=== PATIENT | female | born 1955 | race Caucasian/White ===

== ENCOUNTER → 2020-11-11 13:25 | Outpatient (CLI) | payer OTHER, SELFPAY ==
--- NOTE | 2020-11-11 13:31 | US_ITS ---
STUDY: RENAL ULTRASOUND - COMPLETE REASON FOR EXAM: Female, 65 years old. R FLANK PAIN TECHNIQUE: Ultrasound evaluation of the kidneys was performed with real-time and static peterson-scale imaging. COMPARISON: None. FINDINGS: RIGHT KIDNEY: Normal location of the right kidney, which is normal in size. The right kidney measures 10.6 cm x 4.5 cm x 4.5 cm. There is a normal cortex of the right kidney. The renal cortex measures 1.3 cm. There is no right renal mass or cyst. There are no right renal calculi. There is no right hydronephrosis. DISTAL RIGHT URETER: There is non-visualization of the distal right ureter. There is no demonstrated right ureterovesical junction calculus. There is a visualized right ureteral jet. LEFT KIDNEY: Normal location of the left kidney, which is normal in size. The left kidney measures 11 cm x 5.8 cm x 4.8 cm. There is a normal cortex of the left kidney. The renal cortex measures 1.3 cm. There is no left renal mass or cyst. There are no left renal calculi. There is no left hydronephrosis. DISTAL LEFT URETER: There is non-visualization of the distal left ureter. There is no demonstrated left ureterovesical junction calculus. There is a visualized left ureteral jet. BLADDER: The distended urinary bladder has a volume of 206 ml. There is a normal wall thickness of the distended urinary bladder. There is no demonstrated mass within the urinary bladder. There are no demonstrated bladder calculi. Incidental note is made of splenomegaly. The spleen measures 14 cm x 6.6 x 6.7 cm. A cyst measuring 1.4 cm x 1.4 cm is seen within. US/Kidney and Bladder IMPRESSION: Normal ultrasound of the kidneys and urinary bladder. Splenomegaly. 1.4 cm x 1.4 cm splenic cyst. Electronically Signed: Jose Mejía MD at 15:34 EDT , Service support ,
== END ==
PROVIDERS: PCP Family Medicine; Referring Provider Urology; Visit Provider Urology
DX: R10.9 Unspecified abdominal pain (principal)
CPT/HCPCS: 76770

== ENCOUNTER 2021-07-21 08:17 | Day surgery (SDC) | payer BC, SELFPAY ==
[2021-07-21] MEDS: Vancomycin IV 1,000 MG/200 ML BAG 200 MG IV (07:00)
[2021-07-21 09:07] VITALS: BP 114/56; PULSE 91; RESP 18; TEMP 37.1; O2SAT 100; BMI 31.6
[2021-07-21] MEDS: Lactated Ringers 1,000 ML 15 ML IV (09:15)
[2021-07-21 09:25] LABS: Bedside Glucose 182 mg/dL (70-110)
--- NOTE | 2021-07-21 10:02 | RAD_ITS ---
STUDY: X-RAY - PELVIS REASON FOR EXAM: Female, 66 years old. INTERSTIM REMOVAL AND REPLACEMENT OF LEAD TECHNIQUE: One view of the pelvis was obtained. COMPARISON: None. FINDINGS: Intraoperative imaging provided for InterStim placement. RAD/Pelvis 1 or 2 Views IMPRESSION: Intraoperative imaging provided for InterStim placement. Electronically Signed: Jose Mejía MD at 12:58 EST ,
--- NOTE | 2021-07-21 10:03 | PCM.OPRPT ---
Problems Associated Problem List Diagnoses (1) Urge incontinence: (2) Urinary frequency: Report of Operation Date of Procedure: 07/21/21 Pre-Operative Diagnosis: urinary frequency, urge incontinence Post-Operative Diagnosis: same Surgery/Procedure Performed:: Interstim removal and replacement Surgeon: Kaur Fraser Type of Anesthesia: MAC Description of Procedure: The patient is a 66-year-old female who has been successfully managed with an InterStim for her urinary frequency and urge incontinence for the last 6 years. Her battery has not and she presents for removal and replacement with a new system that is MRI compatible. Informed consent was obtained. The patient was taken the operating room and placed in a prone position on the operating room table. She was appropriately padded and secured to the table. Anesthesia monitored the head, neck, airway, IV access and vital signs throughout the case. Once anesthesia was appropriate ministered the patient was prepped and draped in usual sterile fashion. Using fluoroscopy, the lead was identified in the patient's right side. The area was infiltrated with lidocaine. An incision was made over the lead. Using hemostat and fluoroscopic visualization, the lead was identified and pulled into the operative field. All of the lead including all of the tines were removed without difficulty. Using heavy scissors, this was removed from the operative field. The area over the existing pocket was infiltrated with lidocaine. An incision was made and dissection with Bovie cautery and knife was performed until the IPG was identified and removed from the operative field. The pocket was observed for hemorrhage and cautery was used for hemostasis. At this time the needle was inserted through the right S3 foramen as identified on fluoroscopic visualization. There was good rocío and toe response identified. Using the guidewire followed by the dilator and then finally the lead, the S3 foramen was intubated and was then stimulated. It was obvious that the patient could feel stimulation on leads 0 however no rocío response or toe flexion was seen. There was some blood at the end of the obturator and the response of the rocío was attributed to this. Lead I had good toe flexion and leads II and III also had good toe flexion and rocío response visualized. The tines were then released and the lead was tunneled into the pocket site. It was dried and inserted into the IPG and screwed into position. The IPG was then placed into the pocket and tested for impedances and found to be appropriate. The pocket was closed in 2 layers using 3-0 interrupted Vicryl suturing followed by 4-0 subcuticular suturing and then skin glue. This closure process was also repeated on the incision over the lead site. Once the glue was dry, the patient was awakened and taken the recovery room in good condition. There were no complications during this procedure. Grafts/Implants Used: Interstim lead and battery Complications none Admit VTE Documentation VTE Present on Admission: No VTE Mechan Device Prophylaxis: None VTE Pharm Prophylaxis ordered?: No Reason prophylaxis not ordered:: Treatment Not Indicated
--- NOTE | 2021-07-21 10:04 | PCM.DC ---
Discharge Instructions Diet Discharge Diet: No restrictions Activity Discharge Activity: Return to Normal Activity, May Shower (tomorrow afternoon) and May Take a Tub Bath (in 2 weeks) May resume sexual activity in: 1-2 weeks Dressing / Incision Call your doctor if your incision/area has: Continuous Slow Oozing, Sudden Increased Bleeding, Increased Pain/ Swelling, Increased Redness, Foul Smelling Discharge and Swelling at the incision site Call your doctor if you observe: Fever of 101 or Higher, Inability to urinate and Inability to have a bowel movement Follow Up Care Please Follow Up With: Kaur Fraser MD When: call for appt to be seen in 4 weeks in the office Test Results: Test results from this visit will be discussed in further detail at your follow-up appointment, if applicable. Discharge Plan Admission Attending Provider: Kaur Fraser Primary Care Provider: Jeff Gilmore Discharge Orders/Prescriptions Prescriptions: New oxycodone-acetaminophen [oxycodone-acetaminophen] 1 TABLET tablet 2 tab PO Q8H PRN PRN (Reason: Pain) 7 Days Qty: 20 RF: 0 cephalexin [cephalexin] 500 MG capsule 500 mg PO Q12 3 Days Qty: 6 RF: 0 Continued multivitamin Tablet 1 tab PO DAILY RF: 0 calcium 600 mg Capsule 600 mg PO QHS RF: 0 metformin 500 mg tablet 1,000 mg PO BID RF: 0 atorvastatin 80 mg tablet 80 mg PO DAILY RF: 0 venlafaxine 75 mg capsule,extended release 24hr 150 mg PO BREAKFAST RF: 0 venlafaxine 75 mg capsule,extended release 24hr 75 mg PO QHS RF: 0 famotidine 40 mg tablet 40 mg PO DAILY RF: 0 black cohosh 540 mg capsule 540 mg PO BID RF: 0 aspirin 81 mg tablet,delayed release (DR/EC) 81 mg PO DAILY RF: 0 levothyroxine 25 mcg tablet 25 mcg PO DAILY RF: 0 biotin 10,000 mcg Capsule 10,000 mcg PO DAILY RF: 0 losartan 25 mg tablet 25 mg PO DAILY RF: 0 pramipexole 0.125 mg tablet 0.375 mg PO QHS RF: 0 verapamil 240 mg tablet extended release 240 mg PO DAILY RF: 0 glipizide 5 mg tablet 10 mg PO BID RF: 0 nortriptyline 50 mg capsule 50 mg PO QHS RF: 0 ezetimibe 10 mg tablet 10 mg PO DAILY RF: 0 solifenacin 5 mg tablet 5 mg PO DAILY RF: 0 Januvia 100 mg tablet 100 mg PO DAILY RF: 0 cholecalciferol (vitamin D3) 100 mcg (4,000 unit) Capsule 100 mcg PO DAILY RF: 0 Jardiance 25 mg tablet 25 mg PO DAILY RF: 0 Trulicity 1.5 mg/0.5 mL pen injector 1.5 mg SUBCUT FR RF: 0 Referrals / Follow Up: Jeff Gilmore MD [Primary Care Provider] - Disposition Disposition (needs filled in before D/C Order can be placed): Home, Self Care
[2021-07-21] MEDS: Lidocaine 1% (20 ml mdv) 20 ML Vial (10:15)
[2021-07-21 11:00] VITALS: BP 114/56; BP 115/89; PULSE 104; RESP 16; TEMP 37.5; O2SAT 95
[2021-07-21 11:05] VITALS: BP 114/56; BP 131/72; PULSE 100; RESP 16; O2SAT 98
[2021-07-21 11:10] VITALS: BP 114/56; BP 119/68; PULSE 99; RESP 16; O2SAT 95
[2021-07-21 11:15] VITALS: BP 114/56; BP 128/84; PULSE 100; RESP 16; TEMP 37.1; O2SAT 99
[2021-07-21 12:01] VITALS: BP 114/56; BP 134/68; PULSE 100; RESP 16; TEMP 36.7; O2SAT 100
== END 2021-07-21 23:59 | disposition home or self-care (01) ==
LOC: SDC 08:21 → AC 08:23
PROVIDERS: PCP Family Medicine; Referring Provider Urology; Visit Provider Urology
PROC: (CPT 64585; principal; 2021-07-21 09:45)
DX: Z45.42 Encounter for adjustment and management of neurostimulator (principal); E11.9 Type 2 diabetes mellitus without complications; R35.0 Frequency of micturition; N39.41 Urge incontinence; I10 Essential (primary) hypertension; I25.2 Old myocardial infarction; Z79.82 Long term (current) use of aspirin; Z79.899 Other long term (current) drug therapy; Z79.84 Long term (current) use of oral hypoglycemic drugs; M19.90 Unspecified osteoarthritis, unspecified site; E78.00 Pure hypercholesterolemia, unspecified; G25.81 Restless legs syndrome; G47.30 Sleep apnea, unspecified; E07.9 Disorder of thyroid, unspecified
CPT/HCPCS: 64585; 64595; 00400; 72170; 76000; 82962; 87426; J7120; C1767

== ENCOUNTER 2022-07-23 07:04 | Day surgery (SDC) | payer BC, SELFPAY ==
[2022-07-23] VITALS (8 sets, daily range): BP systolic 116–135; BP diastolic 63–83; PULSE 85–99; RESP 16; TEMP 36.6–36.9; O2SAT 85–100; BMI 29.7
[2022-07-23] MEDS: Lactated Ringers 1,000 ML 15 ML IV (07:20)
--- NOTE | 2022-07-23 07:50 | RAD_ITS ---
CLINICAL HISTORY: REMOVAL INTERSTIM PLACE AXONICS 1 2 Date: 07/23/2022 8:52 AM Date of : 1955 Images assigned to this order were provided in conjunction with a surgical procedure performed in the operating room/procedural suite. Please see operative report for details. Fluoroscopic images: 4 Fluoroscopic time: 100 seconds Cumulative dose: NA, mGym2; 48.94; mGy Imaging documents a right-sided pelvic stimulator which appears to been removed and replaced with a left-sided pelvic stimulator. Refer to procedural note for complete description. Impressions: 1. Fluoroscopic guidance for surgical planning and confirmation. See procedure note for details of the procedure. Electronically Signed: Fazal Petersen MD at 19:04 EST , RAD/Pelvis 1 or 2 Views IMPRESSION: undefined
[2022-07-23 07:55] LABS: Bedside Glucose 191 mg/dL (74-106)
[2022-07-23] MEDS: Lidocaine 2% /Epi 1:100 (20ml) 20 ML VIAL (08:49)
--- NOTE | 2022-07-23 10:31 | DCINST_ITS ---
Discharge Instructions Diet Discharge Diet: No restrictions Activity Discharge Activity: May Not Shower (For 2 days) May resume sexual activity in: 2 weeks Dressing / Incision Call your doctor if your incision/area has: Continuous Slow Oozing, Sudden Increased Bleeding, Increased Pain/ Swelling, Increased Redness, Foul Smelling Discharge and Swelling at the incision site Call your doctor if you observe: Fever of 101 or Higher, Inability to urinate and Inability to have a bowel movement Remove Dressing in: 2 days (Remove the outer dressing in 2 days. Leave the Steri-Strips on until they fall off. Okay to shower with Steri-Strips on) Follow Up Care Please Follow Up With: Kaur Fraser MD When: 2 weeks, call office for appointment Test Results: Test results from this visit will be discussed in further detail at your follow- up appointment, if applicable. Discharge Plan Admission Attending Provider: Kaur Fraser Primary Care Provider: Jeff Gilmore Discharge Orders/Prescriptions Prescriptions: New oxycodone-acetaminophen [oxycodone-acetaminophen] 5-325 mg tablet 2 tab PO Q8H PRN PRN (Reason: Pain) 3 Days Qty: 18 0RF cephalexin [cephalexin] 500 mg capsule 500 mg PO 3XD 3 Days Qty: 9 0RF Continued multivitamin Tablet 1 tab PO DAILY calcium 600 mg Capsule 600 mg PO QHS metformin 500 mg tablet 1,000 mg PO BID Label Comments: Take 1 Tab Oral twice a day i po bid atorvastatin 80 mg tablet 80 mg PO QHS Label Comments: oral venlafaxine 75 mg capsule,extended release 24hr 150 mg PO BREAKFAST Label Comments: TAKE 2 CAPSULES BY MOUTH IN THE MORNING AND 1 CAP AT BEDTIME DAILY venlafaxine 75 mg capsule,extended release 24hr 75 mg PO QHS Label Comments: TAKE 2 CAPSULES BY MOUTH IN THE MORNING AND 1 CAP AT BEDTIME DAILY famotidine 40 mg tablet 40 mg PO DAILY Label Comments: TAKE 1 TABLET BY MOUTH EVERY DAY DIRECTED black cohosh 540 mg capsule 540 mg PO BID Label Comments: oral aspirin 81 mg tablet,delayed release (DR/EC) 81 mg PO DAILY Label Comments: oral levothyroxine 25 mcg tablet 25 mcg PO DAILY Label Comments: TAKE 1 TABLET BY MOUTH EVERY DAY biotin 10,000 mcg Capsule 10,000 mcg PO DAILY losartan 25 mg tablet 25 mg PO DAILY Label Comments: oral pramipexole 0.125 mg tablet 0.375 mg PO QHS Label Comments: oral ezetimibe 10 mg tablet 10 mg PO DAILY Label Comments: oral solifenacin 5 mg tablet 5 mg PO DAILY Label Comments: oral cholecalciferol (vitamin D3) 100 mcg (4,000 unit) Capsule 100 mcg PO DAILY Jardiance 25 mg tablet 25 mg PO DAILY Label Comments: oral Trulicity 1.5 mg/0.5 mL pen injector 1.5 mg SUBCUT FR Label Comments: subQ glimepiride 4 mg Tablet 4 mg PO BID insulin glargine [Basaglar KwikPen U-100 Insulin] 100 unit/mL (3 mL) Insulin Pen 25 unit SUBCUT QPM Praluent Pen 75 mg/mL Pen Injector 75 mg SUBCUT Q14D Referrals / Follow Up: Jeff Gilmore MD [Primary Care Provider] - Disposition Disposition (needs filled in before D/C Order can be placed): Home, Self Care
--- NOTE | 2022-07-23 13:51 | PCM.OPRPT ---
Report of Operation Date of Procedure: 07/23/22 Pre-Operative Diagnosis: Urinary urge incontinence, urinary frequency Post-Operative Diagnosis: Same Surgery/Procedure Performed:: Removal of InterStim lead and battery, placement of Axonics lead and battery (stage I and II) Surgeon: Kaur Fraser Type of Anesthesia: MAC Specimen's removed: InterStim lead and battery Description of Procedure: The patient is a 67-year-old female who had a successful InterStim and when the battery was replaced it no longer worked appropriately. She now presents for removal of her InterStim with insertion of an Axonics stage I and II, informed consent was obtained. The patient was taken to the operating room and placed in a prone position on the operating room table. She was appropriately secured and padded. Anesthesia monitored the head, neck, airway, IV access and vital signs throughout the case. Once anesthesia was appropriately administered, she was prepped and draped in usual sterile fashion. At this time the area overlying her battery was infiltrated with lidocaine as was the area overlying her lead insertion site. Fluoroscopy was used to outline her sacral anatomy. The incision over the battery was opened and the battery was removed. A hemostat was placed on the lead for traction. An incision was made over the lead insertion site. The lead was so scarred down to the sacrum that it took approximately 15 minutes to identify the location of the lead at the insertion site. Once the lead was isolated, it was removed in its entirety. At this point, using both AP and lateral views with fluoroscopy, the patient's sacral foramens were tested for stimulation response and both S3 and S4 positions. The patient's sacrum was obviously very scarred, and there was difficulty advancing the dilator. After multiple trials, the best stimulation was achieved on the patient's left S3 foramen. The lead achieved stimulation response with rocío and no toe flexion with leads 01 and 2 and no response on lead III. This was the best response of all of the trialed access points. The lead was left in situ and the sheath was removed with the tines deployed. The lead was then tunneled into the existing pocket site which had been previously irrigated with sterile water. The lead was dried and inserted into the Axonics battery and secured using the torque wrench. The lead was then placed into the pocket site which was closed using 3-0 Vicryl followed by 4-0 subcuticular Monocryl closure. The old lead insertion site was irrigated and then closed in 2 layers with 3-0 and 4-0 sutures. The new lead insertion site was closed with 4-0 interrupted sutures. Steri-Strips and OpSite with gauze was then applied. Skin glue was placed on the battery pocket site. The patient was then awakened and taken to the recovery room in good condition. This was a very difficult InterStim removal and Axonics placement. Grafts/Implants Used: Axonics lead and battery Complications None Admit VTE Documentation VTE Present on Admission: No VTE Mechan Device Prophylaxis: None VTE Pharm Prophylaxis ordered?: No Reason prophylaxis not ordered:: Treatment Not Indicated
== END 2022-07-23 11:45 | disposition home or self-care (01) ==
LOC: SDC 07:07 → AC 07:07
PROVIDERS: PCP Family Medicine; Referring Provider Urology; Visit Provider Urology
PROC: (CPT 64590; principal; 2022-07-23 08:40)
DX: Z45.42 Encounter for adjustment and management of neurostimulator (principal); N39.41 Urge incontinence; R35.0 Frequency of micturition; E11.9 Type 2 diabetes mellitus without complications; R35.1 Nocturia; I10 Essential (primary) hypertension; E78.00 Pure hypercholesterolemia, unspecified; I25.2 Old myocardial infarction; Z79.82 Long term (current) use of aspirin; Z79.84 Long term (current) use of oral hypoglycemic drugs; Z79.890 Hormone replacement therapy; Z79.899 Other long term (current) drug therapy; E07.9 Disorder of thyroid, unspecified
CPT/HCPCS: 64590; 64561; 00300; 72170; 76000; 82962; J7040; J7120; J2405

== ENCOUNTER 2024-02-24 08:13 | Day surgery (SDC) | payer OTHER, SELFPAY ==
[2024-02-24] VITALS (7 sets, daily range): BP systolic 108–141; BP diastolic 53–67; PULSE 82–96; RESP 16–18; TEMP 36.7–36.9; O2SAT 94–98; BMI 33.2
[2024-02-24] MEDS: Lactated Ringers 1,000 ML 15 ML IV (08:48)
[2024-02-24 09:31] LABS: Bedside Glucose 155 mg/dL (74-106)
[2024-02-24] MEDS: Cefazolin 2 GM in 0.9% Normal Saline (100mL Bag) 100 ML IV (09:38)
[2024-02-24] MEDS: Lidocaine Jelly 2% 20 ML Syringe (URO-JET) 1 APPLIC (09:43)
--- NOTE | 2024-02-24 09:57 | PCM.POST.ANE ---
Anesthesia: Postop Eval I Current Vital Signs Temperature: 98.1 F Pulse Rate: 96 Blood Pressure: 126/57 Respiratory Rate: 16 Pulse Ox: 95 Oxygen Delivery Method: Room Air Assessment Airway patent: Yes Spontaneous unlabored respirations: Yes Mental status: Awake and Calm nausea: No Vomiting: No Anesthesia Complication: No Fluid Hydration Crystalloid volume administer (ml): 500 Total IV fluid infused: 500 Progress Note Anesthesia document: Postop Eval 1 completed: Yes
--- NOTE | 2024-02-24 09:58 | DCINST_ITS ---
Discharge Instructions Diet Discharge Diet: No restrictions Activity Discharge Activity: Return to Normal Activity (By 2 days) and May Shower Dressing / Incision Call your doctor if your incision/area has: Continuous Slow Oozing, Sudden Increased Bleeding, Increased Pain/ Swelling and Foul Smelling Discharge Call your doctor if you observe: Fever of 101 or Higher, Inability to urinate and Inability to have a bowel movement Follow Up Care Please Follow Up With: Kaur Fraser MD When: The office will call to make follow-up arrangements. Test Results: Test results from this visit will be discussed in further detail at your follow- up appointment, if applicable. Discharge Plan Admission Attending Provider: Kaur Fraser Primary Care Provider: Jeff Gilmore Instructions Print Language: Algerian Discharge Orders/Prescriptions Prescriptions: Continued multivitamin Tablet 1 tab PO DAILY calcium 600 mg Capsule 600 mg PO QHS metformin 500 mg tablet 1,000 mg PO BID Patient Comments: Take 1 Tab Oral twice a day i po bid venlafaxine 75 mg capsule,extended release 24hr 150 mg PO BREAKFAST Patient Comments: TAKE 2 CAPSULES BY MOUTH IN THE MORNING AND 1 CAP AT BEDTIME DAILY venlafaxine 75 mg capsule,extended release 24hr 75 mg PO QHS Patient Comments: TAKE 2 CAPSULES BY MOUTH IN THE MORNING AND 1 CAP AT BEDTIME DAILY famotidine 40 mg tablet 40 mg PO DAILY Patient Comments: TAKE 1 TABLET BY MOUTH EVERY DAY DIRECTED aspirin 81 mg tablet,delayed release (DR/EC) 81 mg PO DAILY Patient Comments: oral biotin 10,000 mcg Capsule 10,000 mcg PO DAILY losartan 25 mg tablet 25 mg PO DAILY Patient Comments: oral pramipexole 0.125 mg tablet 0.375 mg PO QHS Patient Comments: oral ezetimibe 10 mg tablet 10 mg PO DAILY Patient Comments: oral cholecalciferol (vitamin D3) 100 mcg (4,000 unit) Capsule 100 mcg PO DAILY Jardiance 25 mg tablet 25 mg PO DAILY Patient Comments: oral glimepiride 4 mg Tablet 4 mg PO QHS Praluent Pen 75 mg/mL Pen Injector 75 mg SUBCUT Q14D levothyroxine 50 mcg tablet 50 mcg PO DAILY solifenacin 10 mg tablet 10 mg PO DAILY Levemir FlexPen 100 unit/mL (3 mL) insulin pen 25 unit subcut QHS Patient Comments: 12 units taken 02/23/24 Trulicity 3 mg/0.5 mL pen injector 3 mg subcut QWEEK psyllium husk [Daily Fiber] 0.4 gram capsule 0.4 g PO DAILY docusate sodium [Col-Rite] 100 mg capsule 200 mg PO DAILY magnesium 250 mg tablet 500 mg PO QHS Referrals / Follow Up: Jeff Gilmore MD [Primary Care Provider] - Disposition Disposition (needs filled in before D/C Order can be placed): Home, Self Care
--- NOTE | 2024-02-24 10:00 | OP.PCM_ITS ---
Report of Operation Date of Procedure: 02/24/24 Pre-Operative Diagnosis: Intrinsic sphincter deficiency, stress urinary inconti nence Post-Operative Diagnosis: Same Surgery/Procedure Performed:: Cystoscopy, Bulkamid injection Surgeon: Kaur Fraser Type of Anesthesia: MAC Specimen's removed: None Description of Procedure: The patient is a 68-year-old female with stress urinary incontinence and intrinsic sphincter deficiency. She presents for cystoscopy and Bulkamid injection after informed consent. She was taken to the operating room and placed on the operating room table. Anesthesia monitored the head, neck, airway, IV access and vital signs throughout the case. She was given a light sedation and was positioned in dorsal lithotomy, prepped and draped in usual sterile fashion. The Bulkamid cystoscope was assembled. The bladder was emptied with a straight catheter. The cystoscope was inserted through the urethra under direct visualization to the area of the bladder neck where the needle was advanced to 2 cm. The entire unit was brought back 2 cm from the bladder neck. The needle with the bevel medially was inserted into the submucosa at the 7 o'clock position and half of a syringe was injected with a good pillow formation. This process was then repeated at positions 5:00, 1:00, and 11:00. There was good coaptation of the urethra at this point and the cystoscope was removed. The patient was then awakened and taken to the recovery room in good condition. There were no complications during this procedure. Grafts/Implants Used: Bulkamid Complications None Admit VTE Documentation VTE Present on Admission: Yes VTE Mechan Device Prophylaxis: SCD's VTE Pharm Prophylaxis ordered?: No Reason prophylaxis not ordered:: Treatment Not Indicated
--- NOTE | 2024-02-24 10:18 | POSTOPAN2_ITS ---
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 Spontaneous unlabored Yes 02/24/24 09:57 ELEVATOR [email or web address] respirations Mental status Awake,Calm 02/24/24 09:57 ELEVATOR [email or web address] nausea No 02/24/24 09:57 ELEVATOR [email or web address] Vomiting No 02/24/24 09:57 [facility] [email or web address].[facility] Anesthesia Postop Eval I: Fluid Summary Crystalloid volume administer 500 02/24/24 09:57 ELEVATOR [email or web address] (ml) Colloids volume administered ( ml) Blood Product volume administered (ml) Total IV fluid infused 500 02/24/24 09:57 ELEVATOR [email or web address] Anesthesia Postop Eval I: Summary Notes Anesthesia Complication No 02/24/24 09:57 ELEVATOR [email or web address].[facility] Anesthesia Complication Comment: Post-operative progress note Anesthesia: Postop Eval II Evaluation Mental status: Awake Pain Level: 0 nausea: No Vomiting: No
--- NOTE | 2024-02-24 10:18 | PCM.POSTANE2 ---
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 Spontaneous unlabored Yes 02/24/24 09:57 WIRE PHOTO [email or web address] respirations Mental status Awake,Calm 02/24/24 09:57 WIRE [email or web address] [email or web address] nausea No 02/24/24 09:57 WIRE PHOTO OPERATOR.[email or web address] Vomiting No 02/24/24 09:57 [facility] Anesthesia Postop Eval I: Fluid Summary Crystalloid volume administer 500 02/24/24 09:57 WIRE PHOTO [email or web address] (ml) Colloids volume administered ( ml) Blood Product volume administered (ml) Total IV fluid infused 500 02/24/24 09:57 WIRE PHOTO [email or web address].[email or web address] Anesthesia Postop Eval I: Summary Notes Anesthesia Complication No 02/24/24 09:57 WIRE PHOTO OPERATOR.[facility] Anesthesia Complication Comment: Post-operative progress note Anesthesia: Postop Eval II Evaluation Mental status: Awake Pain Level: 0 nausea: No Vomiting: No
== END 2024-02-24 11:12 | disposition home or self-care (01) ==
LOC: SDC 08:16 → AC 08:18
PROVIDERS: PCP Family Medicine; Referring Provider Urology; Visit Provider Urology
PROC: 3E0K8GC Introduction of Other Therapeutic Substance into Genitourinary Tract, Via Natural or Artificial Opening Endoscopic (ICD-10-PCS; CPT 52287; principal; 2024-02-24 09:45)
DX: N36.42 Intrinsic sphincter deficiency (ISD) (principal); E11.9 Type 2 diabetes mellitus without complications; N39.3 Stress incontinence (female) (male); I10 Essential (primary) hypertension; I25.2 Old myocardial infarction; Z79.84 Long term (current) use of oral hypoglycemic drugs; Z79.899 Other long term (current) drug therapy; Z79.85 Long-term (current) use of injectable non-insulin antidiabetic drugs; K21.9 Gastro-esophageal reflux disease without esophagitis; E78.00 Pure hypercholesterolemia, unspecified
CPT/HCPCS: 51715; 00910; 82962; J7120

== ENCOUNTER → 2024-05-02 | Outpatient (CLI) | payer OTHER, SELFPAY ==
--- NOTE | 2024-05-02 16:18 | RAD_ITS ---
INDICATION: KUB- FREQ. URGENCY EXAMINATION/TECHNIQUE: X-RAY - XR Abdomen 1 View COMPARISON: No relevant prior comparison study available FINDINGS: BOWEL GAS PATTERN: Non-obstructive. No bowel or stomach distention. Moderate diffuse colonic stool burden. FREE AIR: Not assessed on a single supine view. ORGANOMEGALY: Not seen. CALCIFICATIONS: No abnormal calcifications observed. Pelvic phleboliths. LOWER CHEST: No acute pathology. BONES AND SOFT TISSUES: No acute pathology. Right upper quadrant surgical clips. Left pelvic stimulator. RAD/Abdomen Single View IMPRESSION: Non-obstructive bowel gas pattern. Moderate colonic stool burden. No definite calculi are seen, though this could be obscured by overlying stool. Electronically Signed: Buck Hernandez MD at 2:30 EST ,
== END | disposition home or self-care (01) ==
LOC: MTRAD 16:16
PROVIDERS: PCP Family Medicine; Referring Provider Urology; Visit Provider Urology
DX: N39.41 Urge incontinence (principal)
CPT/HCPCS: 74018

== ENCOUNTER 2025-01-04 09:00 | Outpatient (CLI) | payer OTHER, SELFPAY ==
--- NOTE | 2025-01-04 15:01 | PAT.ANESEVAL ---
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 When Was Last Pacemaker Check QUESTION #4 FULL TEXT: You/Your Family Experience fever (hyperthermia) with Anesthesia Last Oral Intake Last Oral intake: Last Oral Intake NPO since Meds taken in AM with sips of water? 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 Female Yes 01/04/25 08:46 HX of Motion Sickness Yes 01/04/25 08:46 HX of N/V After Surgery No 01/04/25 08:46 Non-Smoker Yes 01/04/25 08:46 Duration of Surgery greater No 01/04/25 08:46 than 60 minutes Number of Risk Factors 3 01/04/25 08:46 PONV Score Moderate Risk 01/04/25 08:46 Height & Weight Height & Weight: Anesthesia: Height & Weight Height 5 ft 10 in 02/24/24 08:49 Respiratory Assessment Respiratory Assessment - lawn mower operator: Respiratory Tract Infection Hx - lawn mower operator Hx Respiratory Tract Infection No 01/04/25 08:46 STOP Sleep Apnea STOP Sleep Apnea - lawn mower operator: STOP Sleep Apnea - lawn mower operator Hx Hypertension Yes 01/04/25 08:46 Hx Sleep Apnea Yes 01/04/25 08:46 CPAP Yes 01/04/25 08:46 BIPAP No 01/04/25 08:46 Do you snore loudly (louder than talking or can be heard Do you often feel tired/ fatigued/ sleepy during daytime? Has anyone observed you stop breathing during sleep? STOP Results Positive 01/04/25 08:46 QUESTION #5 FULL TEXT : Do you snore loudly (louder than talking or can be heard through closed doors)? 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 Specify any problems Hx of Preganancy in last 3 No 01/04/25 08:46 Months Nurse Filling Out Transfusion JZOLLINGE 01/04/25 08:46 & Questions: Date: 01/04/25 01/04/25 08:46 Time: 08:48 01/04/25 08:46 Patient unable to answer at this time (ie. confused, unrespo /Reproduction History /Reproductive History - lawn mower operator: /Reproductive Hx- lawn mower operator Hx Now No 01/04/25 08:46 Gestational Age (in weeks): EDC: Hx Hx Para Hx Section SAB No 01/04/25 08:46 [facility] Medical History (Updated 01/04/25 @ 09:15 by Mabel Anderson) Myocardial infarction Insulin dependent diabetes mellitus Hot flashes due to menopause Dietary restriction Gastric reflux History of trigger finger Urinary frequency Urge incontinence Wears glasses Post-menopausal Thyroid disease Arthritis High cholesterol Restless legs Migraine headache Non-smoker CPAP (continuous positive airway pressure) dependence History of heart attack History of stress test Cardiology follow-up encounter Home Medications ?Medication ?Instructions ?Recorded ?Last Taken ?Type aspirin 81 mg tablet,delayed 81 mg PO DAILY 07/15/21 02/18/24 History release biotin 10,000 mcg capsule 10,000 mcg PO DAILY 07/15/21 Unknown History calcium 600 mg capsule 600 mg PO QHS 07/15/21 02/23/24 History cholecalciferol (vitamin D3) 100 100 mcg PO DAILY 07/15/21 Unknown History mcg (4,000 unit) capsule empagliflozin 25 mg tablet 25 mg PO DAILY 07/15/21 02/23/24 History (Jardiance) ezetimibe 10 mg tablet 10 mg PO DAILY 07/15/21 02/23/24 History famotidine 40 mg tablet 40 mg PO DAILY 07/15/21 02/23/24 History losartan 25 mg tablet 25 mg PO DAILY 07/15/21 02/23/24 History metformin 500 mg tablet 1,000 mg PO BID 07/15/21 02/23/24 History multivitamin 1 tab PO DAILY 07/15/21 Unknown History pramipexole 0.125 mg tablet 0.375 mg PO QHS 07/15/21 02/23/24 History venlafaxine 75 mg capsule,extended 75 mg PO QHS 07/15/21 02/23/24 History release 24 hr venlafaxine 75 mg capsule,extended 150 mg PO BREAKFAST 07/15/21 Unknown History release 24 hr alirocumab 75 mg/mL subcutaneous 75 mg subcut Q14D 07/16/22 02/19/24 History pen injector (Praluent Pen) glimepiride 4 mg tablet 4 mg PO QHS 07/16/22 02/23/24 History docusate sodium 100 mg capsule 200 mg PO DAILY 02/17/24 Unknown History (Col-Rite) dulaglutide 3 mg/0.5 mL 3 mg subcut QWEEK 02/17/24 02/19/24 History subcutaneous pen injector (Trulicity) insulin detemir U-100 100 unit/mL 25 unit subcut QHS 02/17/24 02/23/24 History (3 mL) subcutaneous pen (Levemir FlexPen) levothyroxine 50 mcg tablet 50 mcg PO DAILY 02/17/24 02/23/24 History magnesium 250 mg tablet 500 mg PO QHS 02/17/24 Unknown History psyllium husk 0.4 gram capsule 0.4 g PO DAILY 02/17/24 Unknown History (Daily Fiber) solifenacin 10 mg tablet 10 mg PO DAILY 02/17/24 Unknown History Allergy/AdvReac Type Severity Reaction Status Date / Time Sulfa (Sulfonamide Allergy Nausea/Vom/ Verified 01/04/25 08:33 Antibiotics) Diarrhea Family History (Updated 01/03/25 @ 10:44 by Marilyn Moore) Other Breast cancer Diabetes Ovarian cancer Surgical History (Updated 01/04/25 @ 09:15 by Mabel Anderson) H/O cystoscopy Hx of surgical procedure History of cardiac catheterization History of coronary artery stent placement Hx of colonoscopy Hx of foot surgery Hx of tubal ligation Hx of tonsillectomy Hx laparoscopic cholecystectomy Hx of appendectomy Social History (Updated 01/03/25 @ 10:45 by Marilyn Moore) Smoking Status: Never smoker substance use type: does not use do you feel safe at home: Yes Audit: Pertinent Findings Pertinent Findings Stress test pertinent findings: Stress test 03/10/2021. Normal pharmacologic stress myocardial perfusion scan, although there is a fixed defect in the inferior wall there is no associated wall motion abnormality on the gated study and thus likely this represent diaphragmatic attenuation artifact. The computer-generated EF 70% Additional pertinent findings: Status post NSTEMI on 03/2015 treated with stent to left circumflex. Repeat cath August 2015 with patent stent. Lexiscan stress test normal limit on 03/2021 Recommendation Anesthesia Recommendation Anesthesia recommendation: OPTIMIZED for anesthesia
[2025-01-10 15:37] LABS: Hematocrit 42.0 % (37-47); Hemoglobin 13.8 g/dL (12.0-15.0); Mean Corp Hgb Conc 32.9 g/dL (32-36); Mean Corpuscular Volume 91.1 fL (81-99); Mean Platelet Vol. 9.5 fl (6.2-12.0); Platelet Count 231 K/mm3 (150-450); RBC Distribution Width CV 13.1 % (11.6-14.6); RBC Distribution Width SD 42.8 fl (35.1-43.9); Red Blood Count 4.61 M/mm3 (4.2-5.4); White Blood Count 5.8 K/mm3 (4.4-11.0)
[2025-01-10 16:10] LABS: Anion Gap 16 (5-15); BUN 26 mg/dL (4-19); BUN/Creat Ratio 20.2 RATIO (10-20); Calcium,Total 9.8 mg/dL (7.6-11.0); Carbon Dioxide 22.1 mmol/L (21.0-32.0); Chloride 98 mmol/L (98-108); Potassium 5.0 mmol/L (3.3-5.1)
[2025-01-10 16:16] LABS: Glucose 463 mg/dL (70-99)
--- NOTE | 2025-01-11 10:08 | PAT.ANESEVAL ---
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 When Was Last Pacemaker Check QUESTION #4 FULL TEXT: You/Your Family Experience fever (hyperthermia) with Anesthesia Last Oral Intake Last Oral intake: Last Oral Intake NPO since Meds taken in AM with sips of water? 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 Has anyone observed you stop breathing during sleep? STOP Results Positive 01/04/25 08:46 QUESTION #5 FULL TEXT : Do you snore loudly (louder than talking or can be heard through closed doors)? 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 Specify any problems Hx of Preganancy in last 3 No 01/04/25 08:46 Months Nurse Filling Out Transfusion JZOLLINGE 01/04/25 08:46 & Questions: Date: 01/04/25 01/04/25 08:46 Time: 08:48 01/04/25 08:46 Patient unable to answer at this time (ie. 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: /Reproductive Hx- pollution control technician Hx Now No 01/04/25 08:46 Gestational Age (in weeks): EDC: Hx Hx Para Hx Section SAB No 01/04/25 08:46 PFSH Medical History Myocardial infarction Insulin dependent diabetes mellitus Hot flashes due to menopause Dietary restriction Gastric reflux History of trigger finger Urinary frequency Urge incontinence Wears glasses Post-menopausal Thyroid disease Arthritis High cholesterol Restless legs Migraine headache Non-smoker CPAP (continuous positive airway pressure) dependence History of heart attack History of stress test Cardiology follow-up encounter Home Medications ?Medication ?Instructions ?Recorded ?Last Taken ?Type aspirin 81 mg tablet,delayed 81 mg PO DAILY 07/15/21 02/18/24 History release biotin 10,000 mcg capsule 10,000 mcg PO DAILY 07/15/21 Unknown History calcium 600 mg capsule 600 mg PO QHS 07/15/21 02/23/24 History cholecalciferol (vitamin D3) 100 100 mcg PO DAILY 07/15/21 Unknown History mcg (4,000 unit) capsule empagliflozin 25 mg tablet 25 mg PO DAILY 07/15/21 02/23/24 History (Jardiance) ezetimibe 10 mg tablet 10 mg PO DAILY 07/15/21 02/23/24 History famotidine 40 mg tablet 40 mg PO DAILY 07/15/21 02/23/24 History losartan 25 mg tablet 25 mg PO DAILY 07/15/21 02/23/24 History metformin 500 mg tablet 1,000 mg PO BID 07/15/21 02/23/24 History multivitamin 1 tab PO DAILY 07/15/21 Unknown History pramipexole 0.125 mg tablet 0.375 mg PO QHS 07/15/21 02/23/24 History venlafaxine 75 mg capsule,extended 150 mg PO BREAKFAST 07/15/21 Unknown History release 24 hr alirocumab 75 mg/mL subcutaneous 75 mg subcut Q14D 07/16/22 02/19/24 History pen injector (Praluent Pen) glimepiride 4 mg tablet 4 mg PO QHS 07/16/22 02/23/24 History docusate sodium 100 mg capsule 200 mg PO DAILY 02/17/24 Unknown History (Col-Rite) dulaglutide 3 mg/0.5 mL 3 mg subcut QWEEK 02/17/24 02/19/24 History subcutaneous pen injector (Trulicity) insulin detemir U-100 100 unit/mL 25 unit subcut QHS 02/17/24 02/23/24 History (3 mL) subcutaneous pen (Levemir FlexPen) levothyroxine 50 mcg tablet 50 mcg PO DAILY 02/17/24 02/23/24 History magnesium 250 mg tablet 500 mg PO QHS 02/17/24 Unknown History solifenacin 10 mg tablet 10 mg PO DAILY 02/17/24 Unknown History docusate sodium 100 mg capsule 100 mg PO QDAY 01/10/25 Unknown History (Colace) levothyroxine 75 mcg tablet 75 mcg PO Q OTHER DAY 01/10/25 Unknown History psyllium husk 0.4 gram capsule 0.4 g PO ONCE 01/10/25 Unknown History (Metamucil) Allergy/AdvReac Type Severity Reaction Status Date / Time Sulfa (Sulfonamide Allergy Nausea/Vom/ Verified 01/10/25 13:02 Antibiotics) Diarrhea Family History Other Breast cancer Diabetes Ovarian cancer Surgical History H/O cystoscopy Hx of surgical procedure History of cardiac catheterization History of coronary artery stent placement Hx of colonoscopy Hx of foot surgery Hx of tubal ligation Hx of tonsillectomy Hx laparoscopic cholecystectomy Hx of appendectomy Social History Smoking Status: Never smoker substance use type: does not use do you feel safe at home: Yes Audit: Pertinent Findings HISTORY of Pertinent Findings History of Pertinent Findings: Stress Test Pertinent Findings Stress test pertinent findings Stress test 03/10/2021. 01/04/25 15:09 Normal pharmacologic stress myocardial perfusion scan, although there is a fixed defect in the inferior wall there is no associated wall motion abnormality on the gated study and thus likely this represent diaphragmatic attenuation artifact. The computer-generated EF 70% Additional Pertinent Findings Additional pertinent findings Status post NSTEMI on 01/04/25 15:09 2014 treated with stent to left circumflex. Repeat cath August 2015 with patent stent. Lexiscan stress test normal limit on 03/2021 Pertinent Findings Additional pertinent findings: BG 463, not optimized pre op Recommendation Anesthesia Recommendation Anesthesia recommendation: Anesthesia NOT approved Reason NOT optimized for anesthesia: BG 463, not optimized pre op, suggest HgB A1C
== END 2025-01-04 19:00 | disposition home or self-care (01) ==
LOC: SDC 04-11 10:19
PROVIDERS: PCP Family Medicine; Referring Provider Urology; Visit Provider Urology
DX: Z01.818 Encounter for other preprocedural examination (principal)
CPT/HCPCS: 36415; 80048; 85027